=== PATIENT | female | born 2000 | race American Indian/Alaskan Native ===

== ENCOUNTER 2020-08-23 11:30 | Emergency (ER) | payer OTHER ==
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
[2020-08-23] MEDS ORDERED: DIPHtheria,PERTUSSIS(ACELL),TETANUS VACCINE/PF 0.5 ML VIAL IM ONE (16:45)
[2020-08-23] MEDS ORDERED: ACETAMINOPHEN 325 MG TAB PO ONE (16:45)
[2020-08-23 17:56] VITALS: BP 118/68
== END 2020-08-23 17:53 | disposition home or self-care (01) ==
LOC: ED 11:30
DX: S09.90XA Unspecified injury of head, initial encounter (principal); S00.511A Abrasion of lip, initial encounter; J45.909 Unspecified asthma, uncomplicated; Z79.899 Other long term (current) drug therapy; V47.5XXA Car driver injured in collision with fixed or stationary object in traffic accident, initial encounter; Y93.89 Activity, other specified; Y92.410 Unspecified street and highway as the place of occurrence of the external cause; Y99.8 Other external cause status
CPT/HCPCS: 70450; 71046; 72125; 90471; 90715

== ENCOUNTER 2022-02-17 11:33 | Emergency (ER) | payer OTHER | END 2022-02-17 11:38 | disposition left against medical advice (07) | LOC: ED 11:33 | DX: M54.9 Dorsalgia, unspecified (principal); Z53.21 Procedure and treatment not carried out due to patient leaving prior to being seen by health care provider ==